=== PATIENT | male | born 1995 | race African-American/Black ===

== ENCOUNTER 2021-07-24 12:32 | Emergency (ER) | payer OTHER ==
[2021-07-24 12:55] VITALS: BP 117/78; PULSE 62; TEMP 98.3; BMI 26.9
[2021-07-24] MEDS ORDERED: AZITHROMYCIN 500 MG TABLET PO ONE (14:26)
[2021-07-24] MEDS ORDERED: AZITHROMYCIN 250 MG TABLET ONE (14:38)
== END 2021-07-24 15:06 | disposition home or self-care (01) ==
LOC: JERFT 12:32
DX: N48.29 Other inflammatory disorders of penis (principal); Z11.3 Encounter for screening for infections with a predominantly sexual mode of transmission
CPT/HCPCS: 36415; 87086; 87491; 87591; 87661; 99284-25